=== PATIENT | male | born 1935 | race Caucasian/White ===

== ENCOUNTER 2017-06-05 17:50 | Emergency (ER) | payer MEDICARE, BC ==
[2017-06-05 18:03] VITALS: BP 137/60
--- NOTE | 2017-06-05 18:30 | EDM.PDOC ---
ED HPI GENERAL MEDICAL PROBLEM - General Chief Complaint: General Stated Complaint: RESPITORY ISSUES VIA AMBULANCE Time Seen by Provider: 06/05/17 18:28 Source of Information: Reports: Patient History Limitations: Reports: No Limitations - History of Present Illness INITIAL COMMENTS - FREE TEXT/NARRATIVE: This patient complained of shortness of breath earlier today. He has COPD. He cannot sort of breath suddenly so took an extra prednisone tablet and 3 tablets of few medical denied. He said by the time he got to the hospital he felt a whole lot better. He said he feels back to normal now. He does have a nebulizer at home which he uses and he's on home O2 24 7. He fell 2 days ago and he doesn' t know if maybe he bumped his head. Because today it looked to him like the ceiling and the house was coming down for a little while but he's back to normal now. Neck Pain Score (Numeric/FACES): 2 - Related Data Allergies Allergy/AdvReac Type Severity Reaction Status Date / Time No Known Allergies Allergy Verified 01/02/16 06:03 Home Meds: Home Meds Aspirin 325 mg PO DAILY 10/19/13 [History] Insulin Aspart [NovoLOG] 20 unit SQ TID 10/19/13 [History] Insulin Detemir [Levemir] 32 unit SQ BID 10/19/13 [History] Pravastatin [Pravachol] 10 mg PO BEDTIME 10/19/13 [History] Brimonidine [Alphagan P 0.1% Ophth Soln] 1 drop OP BID 10/20/13 [History] metFORMIN [Glucophage] 1,000 mg PO BID 10/20/13 [History] Furosemide [Lasix] 40 mg PO DAILY 04/25/14 [History] Budesonide/Formoterol Fumarate [Symbicort 80-4.5 Mcg Inhaler] 10.2 gm IH DAILY 01/02/16 [History] Tiotropium [Spiriva] 18 mcg INH BID 01/02/16 [History] Acetaminophen with Codeine [Tylenol with Codeine #3 Tablet] 1 each PO Q6H PRN [History] Past Medical History HEENT History: Reports: Glaucoma, Hard of Hearing Cardiovascular History: Reports: High Cholesterol, Hypertension Respiratory History: Reports: COPD Gastrointestinal History: Reports: Chronic Diarrhea Other Musculoskeletal History: fx clavical elbos and fingers Endocrine/Metabolic History: Reports: Diabetes, Type II Oncologic (Cancer) History: Reports: Prostate - Infectious Disease History Infectious Disease History: Reports: Chicken Pox, Measles, Mumps Social & Family History - Family History Cardiac: Reports: Hypertension Endocrine/Metabolic: Reports: Diabetes, type II - Tobacco Use Smoking Status *Q: Former Smoker Years of Tobacco use: 60 Used Tobacco, but Quit: Yes Month Tobacco Last Used: many years ago Second Hand Smoke Exposure: No - Caffeine Use Caffeine Use: Reports: None - Alcohol Use Days Per Week of Alcohol Use: 0 - Recreational Drug Use Recreational Drug Use: No ED ROS GENERAL - Review of Systems Review Of Systems: ROS reveals no pertinent complaints other than HPI. ED EXAM, GENERAL - Physical Exam Exam: See Below Exam Limited By: No Limitations General Appearance: Alert, No Apparent Distress, Obese, Other (This gentleman shows no signs of dyspnea. He is talking constantly) Eye Exam: Bilateral Eye: Normal Inspection Throat/Mouth: Normal Oropharynx Neck: Normal Inspection Respiratory/Chest: Lungs Clear Cardiovascular: Irregularly Irregular GI/Abdominal: Non-Tender Extremities: Other (2+ pedal edema bilaterally) Neurological: Alert, Oriented, Sensory/Motor Deficit Skin Exam: Warm, Dry Course - Vital Signs Last Recorded V/S: Last Vital Signs Temp 36.4 C 06/05/17 18:01 Pulse 64 06/05/17 18:01 Resp 20 06/05/17 18:01 BP 137/60 06/05/17 18:01 Pulse Ox 88 L 06/05/17 18:01 - Orders/Labs/Meds Orders: Active Orders 24 hr Category Date Time Status EKG Documentation Completion [RC] ASDIRECTED Care 06/05/17 18:40 Active Chest 2V [CR] Urgent Exams 06/05/17 18:39 Taken EKG 12 Lead [EK] Urgent Ther 06/05/17 18:39 Ordered Labs: Laboratory Tests 06/05/17 06/05/17 Range/Units 19:00 19:00 WBC 7.8 (4.5-11.0) K/uL RBC 4.10 L (4.30-5.90) M/uL Hgb 9.8 L D (12.0-15.0) g/dL Hct 36.6 L (40.0-54.0) % MCV 89 (80-98) fL MCH 24 L (27-31) pg MCHC 27 L (32-36) % Plt Count 190 (150-400) K/uL Neut % (Auto) 84 H (36-66) % Lymph % (Auto) 11 L (24-44) % Hamlin % (Auto) 5 (2-6) % Eos % (Auto) 1 L (2-4) % Baso % (Auto) 0 (0-1) % Sodium 141 (140-148) mmol/L Potassium 4.9 (3.6-5.2) mmol/L Chloride 96 L (100-108) mmol/L Carbon Dioxide 45 H (21-32) mmol/L Anion Gap 4.9 L (5.0-14.0) mmol/L BUN 33 H D (7-18) mg/dL Creatinine 1.5 H D (0.8-1.3) mg/dL Est Cr Clr Drug Dosing 43.17 mL/min Estimated GFR (MDRD) 45 L (>60) Glucose 286 H (74-106) mg/dL Calcium 8.4 L (8.5-10.1) mg/dL Total Bilirubin 0.3 (0.2-1.0) mg/dL AST 19 (15-37) U/L ALT 19 (12-78) U/L Alkaline Phosphatase 70 (46-116) U/L Troponin I < 0.017 (0.000-0.056) ng/mL Ekb-N-Gktrkgjnisd Pept 1107 H (5-450) pg/mL Total Protein 7.2 (6.4-8.2) g/dL Albumin 3.1 L (3.4-5.0) g/dL Globulin 4.1 H (2.3-3.5) g/dL Albumin/Globulin Ratio 0.8 L (1.2-2.2) - Re-Assessments/Exams Free Text/Narrative Re-Assessment/Exam: 06/05/17 20:17 EKG shows atrial fibrillation no evidence of any ST RT changes. Chest x-ray shows slightly enlarged heart there is a small infiltrate in the right base could be a little pulmonary edema but pneumonia couldn't be excluded. The patient says he feels back to normal now Departure - Departure Time of Disposition: 20:11 Disposition: Home, Self-Care 01 Condition: Fair Clinical Impression: CHF, Congestive heart failure, Pneumonia - Discharge Information Referrals: PCP,None [Primary Care Provider] - Forms: ED Department Discharge Additional Instructions: Most likely you're shortness of breath was caused by some buildup of fluid in the lungs. That is why the water pill helped so much. It's okay to take one extra water pill daily for a few days. There is also an area in your right lung that could be pneumonia. Therefore I am putting you on some Levaquin 500 mg daily for 10 days. There is a small amount of prednisone in case you run out. These are 10 mg tablets so you should adjust the dose as you were previously instructed by your Dr. - My Orders Last 24 Hours: My Active Orders 06/05/17 18:39 Chest 2V [CR] Urgent EKG 12 Lead [EK] Urgent 06/05/17 18:40 EKG Documentation Completion [RC] ASDIRECTED - Assessment/Plan Last 24 Hours: My Active Orders 06/05/17 18:39 Chest 2V [CR] Urgent EKG 12 Lead [EK] Urgent 06/05/17 18:40 EKG Documentation Completion [RC] ASDIRECTED
--- NOTE | 2017-06-06 14:09 | CR ---
Chest 2V INDICATION: pain FINDINGS: Comparison to 04/16/2016. Cardiac enlargement, mildly increased since prior exam. Stable hyperinflation. Hypertrophic changes thoracic spine. Scattered atelectasis in the lung bases. Stable benign exostosis right clavicle.
== END 2017-06-05 21:04 | disposition home or self-care (01) ==
LOC: JP.ED 17:50
DX: I11.0 Hypertensive heart disease with heart failure (principal); I50.9 Heart failure, unspecified; J18.9 Pneumonia, unspecified organism; E11.9 Type 2 diabetes mellitus without complications; E78.00 Pure hypercholesterolemia, unspecified; J44.9 Chronic obstructive pulmonary disease, unspecified; H40.9 Unspecified glaucoma; Z87.891 Personal history of nicotine dependence; Z79.82 Long term (current) use of aspirin; Z79.4 Long term (current) use of insulin; Z79.84 Long term (current) use of oral hypoglycemic drugs
CPT/HCPCS: 36415; 71020; 71020-26; 80053; 83880; 84484; 85025; 93005; 93010; 99284; 99285-25